=== PATIENT | male | born 1965 | race Caucasian/White ===

== ENCOUNTER 2023-07-07 18:18 | Inpatient (IN) | payer OTHER, SELFPAY ==
[2023-07-07 11:26] VITALS: BP 127/98
[2023-07-07 11:49] LABS: % Basophils 0.5 % (0-2); % Eosinophils 0.4 % (0-6); % Immature Granulocytes 0.3 % (0-0.5); % Lymphocytes 16.7 % (20.5-51.1); % Monocytes 9.7 % (1.7-9.3); % Neutrophils 72.4 % (42.2-75.2); Absolute Basophils 0.1 10^3/uL (0-0.2); Absolute Lymphocytes 1.8 10^3/uL (1.2-3.4); Absolute Monocytes 1.1 10^3/uL (0.1-0.6); Hematocrit 54.8 % (39.0-52.0); Hemoglobin 19.5 g/dL (13.0-18.0); Mean Corp Hgb Conc. 35.6 g/dL (33.0-37.0); Mean Corpuscular Hgb 31.8 pg (27.0-31.0); Mean Corpuscular Volume 89.3 fL (80.0-94.0); Mean Platelet Volume 10.6 fL (7.4-10.4); Nucleated Red Blood Cells % 0 % (-); Platelet Count 295 10^3/uL (130-400); Red Blood Cell Count 6.14 10^6/uL (4.70-6.10); Red Cell Dist. Width 11.7 % (11.5-14.5); White Blood Cell Count 11.1 10^3/uL (4.8-10.8)
[2023-07-07 12:05] LABS: ALT (SGPT) 23 U/L (0-50); AST (SGOT) 27 U/L (17-59); Alkaline Phosphatase 84 U/L (38-126); Blood Urea Nitrogen 25 mg/dl (9-20); Calcium 10.6 mg/dl (8.4-10.2); Carbon Dioxide 22 mmol/L (22-30); Chloride 97 mmol/L (98-107); Glucose 137 mg/dl (70-99); Potassium 4.5 mmol/L (3.5-5.1); Sodium 136 mmol/L (135-145); Total Bilirubin 5.1 mg/dl (0.2-1.3); Total Protein 7.9 g/dl (6.3-8.2); eGFR > 60.00
[2023-07-07 12:42] LABS: Lipase 280 U/L (23-300)
--- NOTE | 2023-07-07 13:19 | ED.GENMED ---
History of Present Illness
General
Chief Complaint: Abdominal Symptoms
Source: patient
Exam Limitations: none
Time Seen by Provider: 07/07/23 12:39
Nursing documentation reviewed up to this point in time: agreed with
Travel History
Have you had any contact with someone who has COVID-19?: No
Do you have any symptoms of coronavirus? Fever > 100 degrees, chills, cough, shortness of breath, sore throat, loss of taste or smell, muscle aches, or headache?: No
History of Present Illness
History of Present Illness:
57-year-old male
Presents for 3 days of nausea and vomiting anything he tries to eat or drink. Patient says he has not seen a doctor in years. Remotely about 25 years ago he was told he could have had Blake Bears disease but he is not really sure what his total
bilirubin was at that time. He says he really gets very anxious about being in the hospital and does not take any chronic medications, does not go for routine screening etc. Over the last several years he has had a lot of chronic hiccups and
burping. He has never seen a GI doctor. Over the last 3 weeks he thinks he has been losing weight, he is not exactly sure how many pounds but he knows he has been wearing clothes that feel bigger on him. And then in the last 3 days he started
having vomiting with even sips of water. He has no pain anywhere in his chest or abdomen. He is having normal bowel movements and had 1 last night. It was not black. He denies drug or alcohol abuse, no smoking history
Past History
Past History
ED Past Medical History: None
ED Past Surgical History: None
Social History
Tobacco: Non-smoker
Alcohol: None
Drug: None
Personal:
Living: with family
Review of Systems
Review of Systems
Allergies reviewed?: Yes
All Other Systems: Not applicable
Phy Exam
Physical Exam
Physical Exam:
GENERAL: Alert , i thin, tearful, anxious
EYE: pupils equal and reactive
NECK: Supple
ENT: o/p clr, mucous membranes mildly dry
CARDIAC: Tachycardic no murmur
LUNGS: Clear breath sounds bilaterally, no acute respiratory distress, no wheezes/rales/rhonchi frequent hiccups
ABDOMEN: Soft, flat nondistended without focal tenderness, no r/g, no cvat, normal bowel sounds
NEUROLOGICAL: Alert and oriented, no focal neuro deficits
SKIN: Warm and dry, jaundice.
MUSCULOSKELETAL: No edema, well perfused. neg philip's sign
PSYCH: Anxious
Course
Orders/Labs/Results
Orders:
Orders
07/07/23 11:34
Complete Blood Count/With Diff Urgent
Comprehensive Metabolic Panel Urgent
Lipase Urgent
07/07/23 13:15
CT Chest/abd/pel W Iv Cont Urgent
Comment:
Reason For Exam: weight loss, n/v anythinng he eats/drinks, e
07/07/23 13:16
Electrocardiogram (*1) Urgent
Reason for Study: Abdominal Pain
EKG- Treatment ONCE
0.9% Sodium Chloride 1000 ml [Nss] 1,000 ml IV BOLUS
Iohexol [Omnipaque] See Protocol PO NOW STA
Ondansetron Injectable [Zofran] 4 mg IV NOW STA
Pantoprazole [Protonix IV] 40 mg IV NOW STA
Abnormal Lab Results
07/07/23
11:34
WBC 11.1 H 10^3/uL
(4.8-10.8)
RBC 6.14 H 10^6/uL
(4.70-6.10)
Hgb 19.5 H g/dL
(13.0-18.0)
Hct 54.8 H %
(39.0-52.0)
MCH 31.8 H pg
(27.0-31.0)
MPV 10.6 H fL
(7.4-10.4)
Absolute Neuts (auto) 8.0 H 10^3/uL
(1.4-6.5)
Absolute Monos (auto) 1.1 H 10^3/uL
(0.1-0.6)
Lymphocytes % 16.7 L %
(20.5-51.1)
Monocytes % 9.7 H %
(1.7-9.3)
Chloride 97 L mmol/L
(98-107)
BUN 25 H mg/dl
(9-20)
Glucose 137 H mg/dl
(70-99)
Calcium 10.6 H mg/dl
(8.4-10.2)
Total Bilirubin 5.1 H mg/dl
(0.2-1.3)
07/07/23 11:34
07/07/23 11:34
Vital Signs
Initial and Last Documented VS:
Initial Vital Signs
Temp Pulse Resp BP Pulse Ox
98.4 F 116 16 127/98 98
07/07/23 11:26 07/07/23 11:26 07/07/23 11:26 07/07/23 11:26 07/07/23 11:26
Last Documented Vital Signs
Temp Pulse Resp BP Pulse Ox
98.4 F 98 18 109/87 96
07/07/23 11:26 07/07/23 16:38 07/07/23 16:38 07/07/23 16:38 07/07/23 16:38
MDM/Problems Addressed
Differential Diagnosis Includes:
Esophageal stricture, malignancy, achalasia, pancreatic mass, bowel obstruction
MDM/Problems Addressed:
57 y/o M noncompliant with routine healthcare;
Pretty anxious about coming to the hospital
unable to eat x 3 days, regurgitates; chronic hiccups for years; weight loss over the past 3 mo; CT shows esophageal dilation with a lot of debris - could be achalasia vs malignancy; no other signs of malignancy on ct;
Patient is unable to go home until he has an endoscopy to resolve the esophageal obstruction/dilation
dr. youssef from [facility]; will see him tomorrow
*Critical Care Note
Total Time (30-74mins, 75-104mins- exclusive of procedures): Not Applicable
ED Attending Note
-
Portions of this chart may have been created with voice recognition software.� Occasional wrong word or��sound alike� substitutions may have occurred due to the inherent limitations of voice recognition software.
Discharge Plan
Departure
Patient Disposition: Admit
Date of Disposition: 07/07/23
Time of Disposition: 17:31
Admit to: Med/Surg
Presentation/result/management discussed w/ accepting MD/: Hospitalist
Condition: Fair
Covid-19: Not Applicable
Discharge Problem:
Obstruction of esophagus
Referrals:
Bubba Crawford MD [Family Provider] -
Interventions
Interventions:
*Risk Screen - Suicide Last Done: 07/07/23 11:26
*General Assessment Last Done: 07/07/23 11:26
*Neglect/Abuse Screening Last Done: 07/07/23 13:32
*ED COVID-19 Vaccine History Last Done: 07/07/23 11:26
XF-Nmtqhr-Jbkiucnyel Assessment Last Done: 07/07/23 13:47
Discharge Date and Time
Print Language: [place]
[2023-07-07 13:31] VITALS: BMI 17.4
[2023-07-07] MEDS: ZOFRAN 4 MG IV ×2 (13:35→20:53)
[2023-07-07] MEDS: NSS 1000 IV ×2 (13:39→20:41)
[2023-07-07] MEDS: OMNIPAQUE 50 ML PO (13:39)
[2023-07-07] MEDS: PROTONIX IV 40 MG IV ×2 (13:40→20:41)
[2023-07-07 13:47] VITALS: BP 144/86
[2023-07-07 16:38] VITALS: BP 109/87
--- NOTE | 2023-07-07 17:58 | HPS.HSE ---
Family Physician
-
Family Physician: Bubba Crawford
Chief Complaint
-
inability to tolerate orally
History of Present Illness
57-year-old male with past medical history of possible Gilbert's disease presenting with worsening inability to tolerate solids or liquids. Few weeks ago he started throwing up whenever he was eating or drinking anything and this got worse over the
past 3 days. Denies any pain with swallowing. Denies any coffee-ground emesis or blood in the vomit. He has lost 5 to 10 pounds in the past several weeks. He denies any chest or abdominal pain. Denies any diarrhea or constipation has been
having regular bowel movements. Denies any blood in the stool or black stool. He has been burping for several years and saw his family care physician years ago who prescribed Pepcid without much improvement. He was diagnosed with Gilbert's
disease 25 years ago on routine lab work showing elevated bilirubin. He had a colonoscopy several years ago for diarrhea which was unremarkable. Never had EGD.
He denies any smoking, alcohol or drug use. His father had colitis of unspecified type. No family history of cancers.
Medical History
Past Medical History
Past Medical History: Reports Other (possible Gilbert's disease)
Past Surgical History: Reports None
Social History
Tobacco: Non-smoker
Alcohol: None
Drug: None
Family History
Family History: Not pertinent
Allergies / Home Medications
Allergies reflects when Allergies were last updated in [facility].
Home Medications with original date entered in [facility]
Allergy/Medication List:
Allergies
Allergy/AdvReac Type Severity Reaction Status Date / Time
No Known Allergies Allergy Unverified 07/07/23 11:29
Home Medications
No Meds [No Current Medications] 07/07/23
Review of Systems
-
History Source: Patient
A 12 point ROS was completed and negative except as noted: Yes
Constitutional: Reports No Symptoms
EENT: Reports No Symptoms
Respiratory: Reports No Symptoms
Cardiac: Reports No Symptoms
Abdomen/GI: Reports See HPI
: Reports No Symptoms
Musculoskeletal: Reports No Symptoms
Skin: Reports No Symptoms
Neurological: Reports No Symptoms
Endocrine: Reports No Symptoms
Hematologic/Lymphatic: Reports No Symptoms
Psych: Reports No Symptoms
Physical Exam
Vital Signs
Vital Signs
Temp Pulse Resp BP Pulse Ox
98.4 F 98 18 109/87 96
07/07/23 11:26 07/07/23 16:38 07/07/23 16:38 07/07/23 16:38 07/07/23 16:38
Physical Exam
General: Well Developed, Well Nourished and No Apparent Distress
HEENT: NormoCephalic, Moist mucous membranes and Atraumatic
Respiratory: Clear
Cardiac: S1/S2 and Regular Rhythm; No Murmur or Rub
GI: Soft, Non Tender, Non Distended and Normal Bowel Sounds; No Organomegaly
Rectal: Deferred by Provider
Musculoskeletal: No Clubbing, No Cyanosis and No Edema
Skin: No Rash
Neuro: Nonfocal/grossly intact
Laboratory Results
-
07/07/23 11:34
07/07/23 11:34
Laboratory Results
Total Bilirubin 5.1 mg/dl (0.2-1.3) H 07/07/23 11:34
AST 27 U/L (17-59) 07/07/23 11:34
ALT 23 U/L (0-50) 07/07/23 11:34
Alkaline Phosphatase 84 U/L (38-126) 07/07/23 11:34
Lipase 280 U/L (23-300) 07/07/23 11:34
Data Reviewed
-
Lab Data: Labs Reviewed by me
Old Records: Reviewed
Impression/Plan
-
IMPRESSION:
PLAN:
# Dysphagia likely secondary to distal esophageal malignancy/achalasia
-CT chest abdomen pelvis shows abnormal concentric mural thickening of the distal esophagus/gastroesophageal junction with diffuse abnormal esophageal dilatation large amount of ingested material within the distended esophagus above this point
-Protonix 40 twice daily
-N.p.o.
-IV fluids
-GI consulted
# History of possible Gilbert's disease
-Bilirubin of 5.1, no prior available
Full code
DVT prophylaxisis-SCDs
N.p.o.
[2023-07-07 18:30] VITALS: BP 120/90
[2023-07-07 19:48] VITALS: BP 150/99; BMI 17.6
--- NOTE | 2023-07-07 19:50 | PTCARENOTE ---
Patient received from ED via stretcher. Patient ambulated into the room. AAOx3, VSS. BP elevated. No complaints of pain. Complaints of N/V. 1 small episode of emesis, clear color. Patient given zofran see MAR. Patient made comfortable, call feliciano is
within reach.
[2023-07-07] MEDS: NSS (PRESERVATIVE FREE) 10 ML IV (20:41)
[2023-07-07 23:55] VITALS: BP 135/93
[2023-07-08] VITALS (9 sets, daily range): BP systolic 123–145; BP diastolic 81–101; BMI 17.6
[2023-07-08] MEDS: NSS 1000 IV (05:26)
[2023-07-08] MEDS: ZOFRAN 4 MG IV (05:30)
--- NOTE | 2023-07-08 06:52 | CON.GI ---
Addendum entered and electronically signed by Fracisco Kingston MD 07/08/23 11:34:
I saw and examined the patient.
The STAFF WEAPONS OFFICER or PA's note was reviewed and I agree with the note.
Comment: 57yo male with no significant PMH presents with inability to tolerate POs. Swallowing has been difficult for couple years but worsened significantly over last two weeks and unable to keep any PO down last [address] shows thickening at GE
jxn and dilated esophagus proximally with large amount of food in esophagus.
REC:
Plan for EGD under [facility] to remove food
Possible achalasia
Original Note:
Consultation
-
Date/Time Consultation Requested: 07/07/231924
Date/Time Consultation Performed: 07/08/23 0700
Requesting Provider: Benjamin Miller MD
Performing Provider: DEANGELO Del Valle, Fracisco Kingston MD
Reason for Consultation: dsyphagia
Medical History
Chief Complaint / HPI
Chief Complaint: unable to eat
History of Present Illness:
Pt is a 57yo with hx possible Gilbert's disease distant hx proctitis with short term enema treatment and colonoscopy years ago with onset dysphagia for some time. He had feeling of food sticking in lower esophagus for some of nausea/vomiting with
inability to eat with belching, hiccups and wt loss. On admission labs notable for BUN 25, glucose 137, calcium 10.6, bili 5.1, WBC 11.1, hbg 19.5, hct 54.[address] chest/abd/pelvis completed with IV contrast with concern for mural
thickening distal esophagus/GE junction with abnormal esophageal dilation and large amount of ingested material with distended esophagus. No finding for mets, non obstructive nephrolithiasis, diverticulosis.
At this time patient admits to chronic dysphagia symptoms for some time. Symptoms were worse over last 2 weeks then severe with inability to eat for last 3 days with increased hiccups and bringing up frothy secretions. Pt admits to recent 5-10
lbs. Pt admits to taking occasional pepcid but denies NSAID or any other medication use. Pt denies GERD, hematemesis, abdominal pain, chest pain, diarrhea, constipation or rectal bleeding. NO prior EGD. Distant hx colonoscopy with proctitis.
Past Medical History
Past Medical History: Psychiatric (anxiety ) and Other (possible Gilbert's, proctitis )
Social History
Tobacco: Non-Smoker
Alcohol: None
Drug: None
Personal:
Living: With Family
Employment: Employed
Family History
Family History: Other (no family hx colon CA or polyps )
Allergies / Home Medications
Allergy/AdvReac Type Severity Reaction Status Date / Time
No Known Allergies Allergy Unverified 07/07/23 11:29
�Medication �Instructions �Recorded
No Meds [No Current Medications] 07/07/23
Review of Systems
-
History Source: Patient
Constitutional: Reports Weight Loss and Other (hiccups )
EENT: Reports Other (dysphagia as per HPI)
Respiratory: Reports No Symptoms
Cardiac: Reports No Symptoms
Abdomen/GI: Reports Nausea and Vomiting (mucous)
: Reports No Symptoms
Musculoskeletal: Reports No Symptoms
Skin: Reports No Symptoms
Neurological: Reports Weakness
Endocrine: Reports No Symptoms
Hematologic/Lymphatic: Reports No Symptoms
Vital Signs
Temp Pulse Resp BP Pulse Ox
98 F 100 18 135/93 97
07/07/23 23:55 07/07/23 23:55 07/07/23 23:55 07/07/23 23:55 07/07/23 23:55
Physical Exam
Exam
General: Well Developed, Well Nourished and No Apparent Distress
HEENT: Normocephalic and Anicteric
Respiratory: Clear
Cardiac: Regular Rhythm
GI: Soft, Non Tender and Non Distended
Musculoskeletal: No Clubbing and No Cyanosis
Skin: Warm and Dry
Neuro: Awake, Alert and AO x 3
Hematologic/Lymphatic: No Lymphadenopathy
Psych: Calm
Results
WBC 11.1 10^3/uL (4.8-10.8) H 07/07/23 11:34
Hgb 19.5 g/dL (13.0-18.0) H 07/07/23 11:34
Hct 54.8 % (39.0-52.0) H 07/07/23 11:34
MCV 89.3 fL (80.0-94.0) 07/07/23 11:34
Plt Count 295 10^3/uL (130-400) 07/07/23 11:34
Absolute Neuts (auto) 8.0 10^3/uL (1.4-6.5) H 07/07/23 11:34
Sodium 136 mmol/L (135-145) 07/07/23 11:34
Potassium 4.5 mmol/L (3.5-5.1) 07/07/23 11:34
Chloride 97 mmol/L (98-107) L 07/07/23 11:34
Carbon Dioxide 22 mmol/L (22-30) 07/07/23 11:34
BUN 25 mg/dl (9-20) H 07/07/23 11:34
Creatinine 1.1 mg/dL (0.7-1.3) 07/07/23 11:34
Calcium 10.6 mg/dl (8.4-10.2) H 07/07/23 11:34
Total Bilirubin 5.1 mg/dl (0.2-1.3) H 07/07/23 11:34
AST 27 U/L (17-59) 07/07/23 11:34
ALT 23 U/L (0-50) 07/07/23 11:34
Alkaline Phosphatase 84 U/L (38-126) 07/07/23 11:34
Lipase 280 U/L (23-300) 07/07/23 11:34
Diagnostic Image Results:
4/15/24 CT Chest/abd/pel W Iv Cont
1. Abnormal concentric mural thickening of the distal esophagus/gastroesophageal junction. Above this level, diffuse abnormal esophageal dilation with large amount of ingested material within the distended esophagus. Differential considerations of
distal esophageal malignancy and achalasia, recommend further evaluation with endoscopy.
2. The distended esophagus exerts significant mass effect against right pulmonary artery, left atrium, and right atrium as above.
3. No findings suspicious for metastatic disease are identified.
4. Nonobstructive right nephrolithiasis.
5. Diverticulosis without diverticulitis.
Prior GI Procedures:
EGD: none
Colonoscopy: years ago with proctitis
Assessment / Plan
-
Pt is a 57yo with hx possible Gilbert's disease distant hx proctitis with short term enema treatment and colonoscopy years ago with onset dysphagia for some time. He had feeling of food sticking in lower esophagus for some of nausea/vomiting with
inability to eat with belching, hiccups and wt loss. On admission labs notable for BUN 25, glucose 137, calcium 10.6, bili 5.1, WBC 11.1, hbg 19.5, hct 54.[address] chest/abd/pelvis completed with IV contrast with concern for mural
thickening distal esophagus/GE junction with abnormal esophageal dilation and large amount of ingested material with distended esophagus. No finding for mets, non obstructive nephrolithiasis, diverticulosis. no prior EGD or recent medical care
-nausea/vomiting
-abnormal CT with concern for mural thickening distal esophagus with abnormal dilation and large amount ingested material
-weight loss
-elevated hbg on admission
-elevated bili with concern for possible underlying Gilbert's disease
-distant hx procitit
PLAN:
etiology of symptoms with concern for large food impaction with underlying mass vs achalasia vs other
plan for EGD today for large food impaction
reviewed with patient may be prolonged procedure with volume of food noted on imaging
reviewed risk of bleeding, infection, perforation, aspiration etc with scope, all questions answered
after impaction clears will need evaluation for underlying etiology
cont NPO
PPI BID
nursing staff updated staff
reviewed with Dr. Rousseau
-
-
Thank you for consultation and allowing me to participate in the patient's care. Please call the avionics technician GI physician during the after hours with any questions or concerns.
[2023-07-08 07:56] LABS: % Basophils 0.6 % (0-2); % Eosinophils 0.4 % (0-6); % Immature Granulocytes 0.5 % (0-0.5); % Lymphocytes 15.3 % (20.5-51.1); % Monocytes 10.2 % (1.7-9.3); Absolute Basophils 0.1 10^3/uL (0-0.2); Absolute Lymphocytes 1.2 10^3/uL (1.2-3.4); Absolute Monocytes 0.8 10^3/uL (0.1-0.6); Absolute Neutrophils 5.9 10^3/uL (1.4-6.5); Hematocrit 46.5 % (39.0-52.0); Mean Corp Hgb Conc. 36.6 g/dL (33.0-37.0); Mean Corpuscular Hgb 32.2 pg (27.0-31.0); Mean Corpuscular Volume 88.1 fL (80.0-94.0); Mean Platelet Volume 10.2 fL (7.4-10.4); Nucleated Red Blood Cells % 0 % (-); Platelet Count 259 10^3/uL (130-400); Red Blood Cell Count 5.28 10^6/uL (4.70-6.10); Red Cell Dist. Width 11.9 % (11.5-14.5); White Blood Cell Count 8.1 10^3/uL (4.8-10.8)
[2023-07-08 08:21] LABS: ALT (SGPT) 16 U/L (0-50); AST (SGOT) 20 U/L (17-59); Alkaline Phosphatase 71 U/L (38-126); Blood Urea Nitrogen 20 mg/dl (9-20); Calcium 9.2 mg/dl (8.4-10.2); Carbon Dioxide 17 mmol/L (22-30); Chloride 108 mmol/L (98-107); Direct Bilirubin 0.3 mg/dl (0.0-0.4); Estimated Creatinine Clearance 74 ml/min; Glucose 95 mg/dl (70-99); Potassium 4.3 mmol/L (3.5-5.1); Sodium 136 mmol/L (135-145); Total Bilirubin 5.4 mg/dl (0.2-1.3); Total Protein 6.5 g/dl (6.3-8.2); eGFR > 60.00
[2023-07-08 08:31] LABS: INR 1.21; PT 15.1 Sec (11.4-14.6)
[2023-07-08] MEDS: NSS (PRESERVATIVE FREE) 10 ML IV ×2 (09:39→20:09)
[2023-07-08] MEDS: PROTONIX IV 40 MG IV ×2 (09:39→20:09)
--- NOTE | 2023-07-08 09:54 | W.PN.HOSP.TC ---
Today's Communication/Plan
-
For EGD today possible need for higher level of care in ICU based on findings and need for further intervention
Continue PPI IV
Change IV saline to half-normal saline with bicarb
Assessment / Plan
Assessment / Plan
57-year-old male with past medical history of possible Gilbert's disease presenting with worsening inability to tolerate solids or liquids. Few weeks ago he started throwing up whenever he was eating or drinking anything and this got worse over the
past 3 days. Denies any pain with swallowing. Denies any coffee-ground emesis or blood in the vomit. He has lost 5 to 10 pounds in the past several weeks. He denies any chest or abdominal pain. Denies any diarrhea or constipation has been
having regular bowel movements. Denies any blood in the stool or black stool. He has been burping for several years and saw his family care physician years ago who prescribed Pepcid without much improvement. He was diagnosed with Gilbert's
disease 25 years ago on routine lab work showing elevated bilirubin. He had a colonoscopy several years ago for diarrhea which was unremarkable. Never had EGD.
He denies any smoking, alcohol or drug use. His father had colitis of unspecified type. No family history of cancers.
CT of the chest/pelvis with IV contrast
1. Abnormal concentric mural thickening of the distal esophagus/gastroesophageal junction. Above this level, diffuse abnormal esophageal dilation with large amount of ingested material within the distended esophagus. Differential considerations of
distal esophageal malignancy and achalasia, recommend further evaluation with endoscopy.
2. The distended esophagus exerts significant mass effect against right pulmonary artery, left atrium, and right atrium as above.
3. No findings suspicious for metastatic disease are identified.
4. Nonobstructive right nephrolithiasis.
5. Diverticulosis without diverticulitis.
# Dysphagia likely secondary to distal esophageal malignancy/achalasia
-CT chest abdomen pelvis shows abnormal concentric mural thickening of the distal esophagus/gastroesophageal junction with diffuse abnormal esophageal dilatation large amount of ingested material within the distended esophagus above this point
-Protonix 40 twice daily
-N.p.o.
-IV fluids
-GI consulted/as discussed with the patient and also patient's spouse been informed that the patient in process of EGD and due to the complexity and volume of food involved may require eventual intubation for completion of intervention and
disimpaction of food/risk of perforation also explain/
# History of possible Gilbert's disease
-Bilirubin of 5.1, no prior available
Full code
DVT prophylaxisis-SCDs
N.p.o.
Anticipated Discharge: Within 24 hours
Subjective/Interval History
-
Date of Service: July 08, 2023
Frequent burping and hiccups. Relates inability to take anything down orally for the last 2 to 3 days prior to that been gradually worsening with various liquids and solids. Has had weight loss for the last 2 weeks.
Objective Data
-
Labs:
Laboratory Results
07/08/23 07/08/23
07:34 08:01
WBC 8.1
Hgb 17.0
Hct 46.5
Plt Count 259
PT 15.1 H
INR 1.21
Sodium 136
Potassium 4.3
Chloride 108 H
Carbon Dioxide 17 L
BUN 20
Creatinine 0.9
Glucose 95
Calcium 9.2
Total Bilirubin 5.4 H
AST 20
ALT 16
Alkaline Phosphatase 71
Vital Signs:
Vital Signs
Temp Pulse Resp BP Pulse Ox
98.2 F 76 16 135/85 99
07/08/23 07:45 07/08/23 07:45 07/08/23 07:45 07/08/23 07:45 07/08/23 07:45
I&O
07/07/23 07/08/23 07/09/23
06:59 06:59 06:59
Intake Total 1680 / 1680
Balance 1680 / 1680
Review of Systems
-
History Source: Patient
Constitutional: Reports Weight Loss
Abdomen/GI: Reports Vomiting
Physical Exam
-
General: Well Developed
HEENT: Normocephalic and Other; Negative Anicteric (Icteric)
Respiratory: Clear to Auscultation
Cardiac: Regular Rhythm
GI: Soft, Nontender and Nondistended
Neuro: Awake, Alert and Oriented
Psych: Calm
Data Reviewed
-
Total Time Spent with Patient (in minutes): 56
Labs: Labs Reviewed by me (Bicarb 17/total bilirubin of 5.4)
[2023-07-08] MEDS: SODIUM BICARBONATE 1075 MEQ IV ×2 (10:42→23:31)
--- NOTE | 2023-07-08 11:49 | CM ---
Patient seen bedside, initial assessment completed. Patient lives with his and daughter in multiple story home, denies DME, VN, or SNF. Patient denies food insecurities at home. Patient confirms PCP Bubba Crawford, pharmacy [facility], confirms
prescription coverage. CM will continue to follow for discharge planning needs.
Plan; home no needs likely.
--- NOTE | 2023-07-08 12:52 | W.PN.UPDATE ---
Update Note
Progress Note Update
EGD done
Large amount semi liquid food in esophagus. Removed with Beck net and suction with Biovac
Moderate esophagitis - bx'd
Gastric fundic polyps- bx'd
REC:
Clear liquids
Await path- r/o EoE
If negative path, set up OP esophageal manometry
--- NOTE | 2023-07-09 05:14 | DOWNTIME ---
There was a [employer] Service Merchandiser Downtime on 07/09/2023 from 0100 to 07/09/2023 at 0439. Downtime documentation of patient's care, including medication administrations, has been reconciled in the electronic record per guidelines. Refer to the
patient's paper chart under the miscellaneous tab to see printed paper medication records and downtime forms.
[2023-07-09 07:30] VITALS: BP 156/92
[2023-07-09] MEDS: NSS (PRESERVATIVE FREE) 10 ML IV ×2 (07:35→19:36)
[2023-07-09] MEDS: PROTONIX IV 40 MG IV ×2 (07:35→19:36)
--- NOTE | 2023-07-09 08:52 | W.PN.HOSP.TC ---
Today's Communication/Plan
-
Will defer further dietary advancement to GI
Presume if can be advanced and follow-up biopsy results as outpatient and possible outpatient esophageal manometry
Continues on IV PPI for now
Assessment / Plan
Assessment / Plan
57-year-old male with past medical history of possible Gilbert's disease presenting with worsening inability to tolerate solids or liquids. Few weeks ago he started throwing up whenever he was eating or drinking anything and this got worse over the
past 3 days. Denies any pain with swallowing. Denies any coffee-ground emesis or blood in the vomit. He has lost 5 to 10 pounds in the past several weeks. He denies any chest or abdominal pain. Denies any diarrhea or constipation has been
having regular bowel movements. Denies any blood in the stool or black stool. He has been burping for several years and saw his family care physician years ago who prescribed Pepcid without much improvement. He was diagnosed with Gilbert's
disease 25 years ago on routine lab work showing elevated bilirubin. He had a colonoscopy several years ago for diarrhea which was unremarkable. Never had EGD.
He denies any smoking, alcohol or drug use. His father had colitis of unspecified type. No family history of cancers.
CT of the chest/pelvis with IV contrast
1. Abnormal concentric mural thickening of the distal esophagus/gastroesophageal junction. Above this level, diffuse abnormal esophageal dilation with large amount of ingested material within the distended esophagus. Differential considerations of
distal esophageal malignancy and achalasia, recommend further evaluation with endoscopy.
2. The distended esophagus exerts significant mass effect against right pulmonary artery, left atrium, and right atrium as above.
3. No findings suspicious for metastatic disease are identified.
4. Nonobstructive right nephrolithiasis.
5. Diverticulosis without diverticulitis.
# Dysphagia likely secondary to distal esophageal malignancy/achalasia
-CT chest abdomen pelvis shows abnormal concentric mural thickening of the distal esophagus/gastroesophageal junction with diffuse abnormal esophageal dilatation large amount of ingested material within the distended esophagus above this point
-Protonix 40 twice daily
-Clear liquids and awaiting GI input for advancement
-IV fluid can be discontinued
-GI consulted/as discussed with the patient and also patient's spouse been informed that the patient in process of EGD and due to the complexity and volume of food involved may require eventual intubation for completion of intervention and
disimpaction of food/risk of perforation also explain/underwent EGD finding large amount of semiliquid food in the esophagus removed finding moderate esophagitis that was biopsied along with gastric fundic polyps that were biopsied/rule out
eosinophilic esophagitis per GI if negative for pathology set up outpatient esophageal manometry
# History of possible Gilbert's disease
-Bilirubin of 5.1, no prior available
Full code
DVT prophylaxisis-SCDs
N.p.o.
Anticipated Discharge: Within 24 hours
Subjective/Interval History
-
Date of Service: July 09, 2023
Seems to have tolerated clear liquids thus far without regurgitation nausea or pain.
Objective Data
-
Labs:
Laboratory Results
07/09/23
08:15
Sodium Pending
Potassium Pending
Chloride Pending
Carbon Dioxide Pending
BUN Pending
Creatinine Pending
Glucose Pending
Calcium Pending
Vital Signs:
Vital Signs
Temp Pulse Resp BP Pulse Ox
98.7 F 72 16 156/92 100
07/09/23 07:30 07/09/23 07:30 07/09/23 07:30 07/09/23 07:30 07/09/23 07:30
I&O
07/08/23 07/09/23 07/10/23
06:59 06:59 06:59
Intake Total 1680 / 1680 2380 / 2380
Balance 1680 / 1680 2380 / 2380
Review of Systems
-
All other systems: Not reviewed unless documented
Physical Exam
-
General: Well Developed
HEENT: Normocephalic
Respiratory: Clear to Auscultation
Cardiac: Regular Rhythm
GI: Soft and Nontender
Neuro: Awake and Alert
Psych: Calm
Data Reviewed
-
Total Time Spent with Patient (in minutes): 45
CT Scan: Report Reviewed by me (Report reviewed and performed prior to EGD/showing marked dilatation of the esophagus from food impaction)
Labs: Labs Reviewed by me (Today's labs pending)
[2023-07-09] MEDS: SODIUM BICARBONATE IV (09:39)
[2023-07-09 09:51] LABS: Blood Urea Nitrogen 16 mg/dl (9-20); Calcium 8.8 mg/dl (8.4-10.2); Carbon Dioxide 25 mmol/L (22-30); Chloride 100 mmol/L (98-107); Estimated Creatinine Clearance 83 ml/min; Glucose 104 mg/dl (70-99); Potassium 3.9 mmol/L (3.5-5.1); Sodium 132 mmol/L (135-145); eGFR > 60.00
--- NOTE | 2023-07-09 09:59 | W.PN.GI.CBS2 ---
Addendum entered and electronically signed by Fracisco Bansal MD 07/09/23 12:18:
I saw and examined the patient.
The [employer]PER or PA's note was reviewed and I agree with the note.
Comment: Tolerated clears. Having hiccups. Denies abd pain or vomiting
ABD soft NTND
REC:
OK to advance to minced and moist diet
If tolerates, OK for d/c
Await path. If negative for EoE, will set up manometry next for likely achalasia diagnosis
Cont BID PPI
Addendum entered and electronically signed by DEANGELO Valenzuela 07/09/23 11:19:
message sent to arrange OP follow up -- office will call patient to arrange
Original Note:
Today's Communication / Plan
-
s/p EGD with removal of food impaction
biopsy pending
possible underlying dysmotility vs other consider OP manometry
clear diet- some hiccups this am with clears monitor and plan for soft diet later today-- if tolerating consider discharge later today
will arrange OP followup
cont PPI BID
reviewed with Dr. Rousseau
Assessment / Plan
-
Pt is a 57yo with hx possible Gilbert's disease distant hx proctitis with short term enema treatment and colonoscopy years ago with onset dysphagia for some time. He had feeling of food sticking in lower esophagus for some of nausea/vomiting with
inability to eat with belching, hiccups and wt loss. CT chest/abd/pelvis completed with IV contrast with concern for mural thickening distal esophagus/GE junction with abnormal esophageal dilation and large amount of ingested material with
distended esophagus. No finding for mets, non obstructive nephrolithiasis, diverticulosis. no prior EGD or recent medical care
07/07 EGD [facility] - Food in the esophagus. Removal was successful.
- Moderately severe esophagitis with no bleeding.
Biopsied.
- Multiple gastric polyps. Biopsied.
- Normal examined duodenum.
bx pending
-large food impaction with removal 07/07
-abnormal CT with concern for mural thickening distal esophagus with abnormal dilation and large amount ingested material
-weight loss
-hiccups
-elevated hbg on admission
-elevated bili with concern for possible underlying Gilbert's disease
-distant hx procititis
PLAN:
s/p EGD with removal of food impaction
biopsy pending
possible underlying dysmotility vs other consider OP manometry
clear diet- some hiccups this am with clears monitor and plan for soft diet later today-- if tolerating consider discharge
will arrange OP followup
cont PPI BID
reviewed with Dr. Rousseau
Subjective
Subjective
Date of Service: July 09, 2023
Objective
Data Reviewed
Laboratory Data:
Laboratory Results
07/08/23 07:34
07/09/23 08:15
Laboratory Results
PT 15.1 Sec (11.4-14.6) H 07/08/23 08:01
INR 1.21 07/08/23 08:01
Total Bilirubin 5.4 mg/dl (0.2-1.3) H 07/08/23 07:34
AST 20 U/L (17-59) 07/08/23 07:34
ALT 16 U/L (0-50) 07/08/23 07:34
Alkaline Phosphatase 71 U/L (38-126) 07/08/23 07:34
Lipase 280 U/L (23-300) 07/07/23 11:34
Vital Signs and I&O:
Vital Signs
Temp Pulse Resp BP Pulse Ox
98.7 F 72 16 156/92 100
07/09/23 07:30 07/09/23 07:30 07/09/23 07:30 07/09/23 07:30 07/09/23 07:30
I&O
07/08/23 07/09/23 07/10/23
06:59 06:59 06:59
Intake Total 0 / 1680 2380 / 2380
Balance 1680 / 1680 2380 / 2380
Physical Exam
Physical Exam
HEENT: Anicteric and Moist mucous membranes
Cardiology: Normal Sinus Rhythm
Pulmonary: Clear
GI: Soft, Non Distended and Non Tender
Extremities: No Edema
Neuro: Non Focal
--- NOTE | 2023-07-09 11:44 | W.DS.TRANS ---
DC Summary - Wheelchair [employer]
-
Discharge Instructions:
Discharge Diagnosis/Procedures Food impaction
Possible motility disorder of esophagus
Esophagitis
Diet Chop all food
Additional Diets Mechanical soft
Activity As tolerated
Driving Restrictions As prior to admission
Instructions:
Stand-Alone Forms:
Changes to Home Medications: Yes
Discharge Medications:
DC Medications w/original date entered in [employer]
pantoprazole 40 mg tablet,delayed release (Protonix) 40 mg PO BID Gastrointestinal issue #60 tabs 07/09/23
Home Medication Changes
pantoprazole 40 mg tablet,delayed release (Protonix) 40 mg PO BID Gastrointestinal issue #60 tabs 07/09/23
Pending Results: No
--- NOTE | 2023-07-09 12:11 | CM ---
Patient seen bedside. Per Gastroenterology note, possible discharge today if tolerating soft diet. CM will continue to follow for discharge planning needs.
Plan; home no needs.
[2023-07-09 12:15] VITALS: BP 118/92
--- NOTE | 2023-07-09 13:30 | W.DCSUMMARY ---
Addendum entered and electronically signed by Collin Rousseau MD 07/09/23 15:51:
On attempt at soft diet redeveloped nausea and emesis and was preceded by retrn of hiccups . Will cancel discharge. Will place back on IV fluids .GI aware
Original Note:
Discharge Summary
Discharge Data
Date of Admission: 07/07/23
Date of Discharge: 07/09/23
Total time spent discharging patient (in min): 56
-
Pending Results: No
Hospital Course
57-year-old male patient with prior history of Chandra's disease and a distant history of proctitis who is presented with ongoing dysphagia describing as food sticking in the lower esophagus with some nausea and vomiting had initially thought it
would pass but became more persistent to the point now unable to keep anything down with belching hiccups and weight loss. A CT of the chest abdomen pelvis at time of presentation with IV contrast was concerning for a large food food impaction in
the esophagus with mural thickening the distal esophagus and GE junction with abnormal esophageal dilation suspect in large amount of ingested material noting in the distended esophagus. Patient was kept n.p.o. admitted
and gastroenterology service was consulted
Patient underwent an EGD by Dr. Kingston findings significant amount of food in the esophagus mostly liquefied with removal being successful with areas of biopsies to the gastric polyps that were found in multiple locations and also moderate severe
esophagitis being found that was biopsied there is a normal duodenum noted with also biopsy pending there.
He was returned to his room and observed overnight placed on a clear liquid diet which has been tolerated and he is now graduated to a mechanical soft diet which we will plan diet on his discharge and to further follow-up with GI to address possible
need for manometry only after obtaining biopsy results that should include assessment for eosinophilic esophagitis. There seems to be no mass effect noted at the time of EGD. He will be continued on a twice daily PPI as long as he tolerates his
mechanical soft diet the rest of the day he can be discharged later today. GI service has given him instructions for follow-up PPI was called into his local pharmacy.
Discharge Plan
-
Patient Disposition: Home (Routine Discharge)
Discharge Diagnosis/Procedures: Food impaction
Possible motility disorder of esophagus
Esophagitis
Diet: Chop all food
Additional Diets: Mechanical soft
Activity: As tolerated
Driving Restrictions: As prior to admission
Referrals:
Bubba Crawford MD [Family Provider] -
Fracisco Kingston MD [Active] - (call office to arrange 3-4 week follow up)
Prescriptions:
New
pantoprazole [Protonix] 40 mg tablet,delayed release (DR/EC)
40 mg PO BID Qty: 60 0RF
Discharge Orders:
Discharge Patient (As Directed); Ordered 07/09/23
Ordered By: Collin Rousseau
Discharge Date and Time
Print Language: PERUVIAN
[2023-07-09] MEDS: ZOFRAN 4 MG IV ×2 (14:51→22:15)
[2023-07-09 15:12] VITALS: BP 141/96
[2023-07-09] MEDS: NSS 1000 IV (16:18)
[2023-07-09 23:10] VITALS: BP 148/96
[2023-07-10] MEDS: NSS 1000 IV ×2 (04:30→16:07)
[2023-07-10 07:55] VITALS: BP 130/97
[2023-07-10] MEDS: NSS (PRESERVATIVE FREE) 10 ML IV ×2 (08:11→19:29)
[2023-07-10] MEDS: PROTONIX IV 40 MG IV ×2 (08:11→19:29)
--- NOTE | 2023-07-10 09:20 | W.PN.HOSP.TC ---
Today's Communication/Plan
-
Attempted advancing diet unfortunately was unsuccessful due to return of nausea and vomiting and hiccups and burping./
Will continue IV PPI and IV fluids have been reinitiated awaiting GI input
Assessment / Plan
Assessment / Plan
57-year-old male with past medical history of possible Gilbert's disease presenting with worsening inability to tolerate solids or liquids. Few weeks ago he started throwing up whenever he was eating or drinking anything and this got worse over the
past 3 days. Denies any pain with swallowing. Denies any coffee-ground emesis or blood in the vomit. He has lost 5 to 10 pounds in the past several weeks. He denies any chest or abdominal pain. Denies any diarrhea or constipation has been
having regular bowel movements. Denies any blood in the stool or black stool. He has been burping for several years and saw his family care physician years ago who prescribed Pepcid without much improvement. He was diagnosed with Gilbert's
disease 25 years ago on routine lab work showing elevated bilirubin. He had a colonoscopy several years ago for diarrhea which was unremarkable. Never had EGD.
He denies any smoking, alcohol or drug use. His father had colitis of unspecified type. No family history of cancers.
CT of the chest/pelvis with IV contrast
1. Abnormal concentric mural thickening of the distal esophagus/gastroesophageal junction. Above this level, diffuse abnormal esophageal dilation with large amount of ingested material within the distended esophagus. Differential considerations of
distal esophageal malignancy and achalasia, recommend further evaluation with endoscopy.
2. The distended esophagus exerts significant mass effect against right pulmonary artery, left atrium, and right atrium as above.
3. No findings suspicious for metastatic disease are identified.
4. Nonobstructive right nephrolithiasis.
5. Diverticulosis without diverticulitis.
# Dysphagia likely secondary to distal esophageal malignancy/achalasia
-CT chest abdomen pelvis shows abnormal concentric mural thickening of the distal esophagus/gastroesophageal junction with diffuse abnormal esophageal dilatation large amount of ingested material within the distended esophagus above this point
-Protonix 40 twice daily
-Clear liquids and awaiting GI input for advancement
-IV fluid can be discontinued
-GI consulted/as discussed with the patient and also patient's spouse been informed that the patient in process of EGD and due to the complexity and volume of food involved may require eventual intubation for completion of intervention and
disimpaction of food/risk of perforation also explain/underwent
EGD finding large amount of semiliquid food in the esophagus removed finding moderate esophagitis that was biopsied along with gastric fundic polyps that were biopsied/rule out eosinophilic esophagitis per GI if negative for pathology set up
outpatient esophageal manometry
-Attempted advancing diet unfortunately was unsuccessful due to return of nausea and vomiting and hiccups and burping./Will continue IV PPI and IV fluids have been reinitiated awaiting GI input
# History of possible Gilbert's disease
-Bilirubin of 5.1, no prior available
Full code
DVT prophylaxisis-SCDs
N.p.o.
Anticipated Discharge: Within 24 hours
Subjective/Interval History
-
Date of Service: July 10, 2023
Had to have his discharge postponed yesterday due to recurrence of his nausea vomiting and hiccups are remained this morning and also had nausea and emesis overnight. Placed back on IV fluids.
Objective Data
-
Vital Signs:
Vital Signs
Temp Pulse Resp BP Pulse Ox
98.7 F 72 19 148/96 98
07/09/23 23:10 07/09/23 23:10 07/09/23 23:10 07/09/23 23:10 07/09/23 23:10
I&O
07/09/23 07/10/23 07/11/23
06:59 06:59 06:59
Intake Total 2380 / 2380 2820 / 2820
Balance 2380 / 2380 2820 / 2820
Review of Systems
-
History Source: Patient
All other systems: Reviewed and negative
Constitutional: Reports No Symptoms
EENT: Reports No Symptoms Reported
Respiratory: Reports No Symptoms
Cardiac: Reports No Symptoms
Abdomen/GI: Reports Nausea and Vomiting
Genitourinary: Reports No Symptoms
Musculoskeletal: Reports No Symptoms
Physical Exam
-
General: Well Developed
Respiratory: Clear to Auscultation
Cardiac: Regular Rhythm and S1/S2
GI: Soft, Nontender and Nondistended
Data Reviewed
-
Total Time Spent with Patient (in minutes): 34
Labs: Labs Reviewed by me
--- NOTE | 2023-07-10 11:12 | W.PN.GI.CBS2 ---
Today's Communication / Plan
-
Keep NPO
Await esophagram results
Possible EGD with botox injection into [facility] tomorrow for achalasia rx
Assessment / Plan
-
Pt is a 57yo with hx possible Gilbert's disease distant hx proctitis with short term enema treatment and colonoscopy years ago with onset dysphagia for some time. He had feeling of food sticking in lower esophagus for some of nausea/vomiting with
inability to eat with belching, hiccups and wt loss. CT chest/abd/pelvis completed with IV contrast with concern for mural thickening distal esophagus/GE junction with abnormal esophageal dilation and large amount of ingested material with
distended esophagus. No finding for mets, non obstructive nephrolithiasis, diverticulosis. no prior EGD or recent medical care
07/07 EGD [facility] - Food in the esophagus. Removal was successful.
- Moderately severe esophagitis with no bleeding.
Biopsied.
- Multiple gastric polyps. Biopsied.
- Normal examined duodenum.
bx pending
Impression:
-large food impaction with removal 07/07
-Dilated esophagus, suspect achalasia
-abnormal CT with concern for mural thickening distal esophagus with abnormal dilation and large amount ingested material
-weight loss
-hiccups
-elevated hbg on admission
-elevated bili with concern for possible underlying Gilbert's disease
-distant hx procititis
Subjective
Subjective
Date of Service: July 10, 2023
Did not tolerate minced and moist diet yesterday. Vomited up food following meal.
Objective
Data Reviewed
Laboratory Data:
Laboratory Results
07/08/23 07:34
07/09/23 08:15
Laboratory Results
PT 15.1 Sec (11.4-14.6) H 07/08/23 08:01
INR 1.21 07/08/23 08:01
Total Bilirubin 5.4 mg/dl (0.2-1.3) H 07/08/23 07:34
AST 20 U/L (17-59) 07/08/23 07:34
ALT 16 U/L (0-50) 07/08/23 07:34
Alkaline Phosphatase 71 U/L (38-126) 07/08/23 07:34
Lipase 280 U/L (23-300) 07/07/23 11:34
Vital Signs and I&O:
Vital Signs
Temp Pulse Resp BP Pulse Ox
98.2 F 78 16 130/97 98
07/10/23 07:55 07/10/23 07:55 07/10/23 07:55 07/10/23 07:55 07/10/23 07:55
I&O
07/09/23 07/10/23 07/11/23
06:59 06:59 06:59
Intake Total 2380 / 2380 2820 / 2820
Balance 2380 / 2380 2820 / 2820
Physical Exam
Physical Exam
GI: Soft, Non Distended and Non Tender
--- NOTE | 2023-07-10 14:02 | CM ---
Patient seen bedside, chart reviewed. Per Gastroenterology note, possible EGD with botox injection tomorrow. CM will continue to be available, will follow for discharge planning needs.
Plan; home no needs.
[2023-07-10 15:55] VITALS: BP 145/93
[2023-07-10 23:45] VITALS: BP 140/99
[2023-07-11] VITALS (8 sets, daily range): BP systolic 95–137; BP diastolic 78–95
[2023-07-11] MEDS: NSS 1000 IV ×2 (03:03→20:41)
--- NOTE | 2023-07-11 09:40 | W.PN.HOSP.TC ---
Today's Communication/Plan
-
EGD and Botox injection today
Overall feeding status per GI postprocedure
Will continue IV fluids for now
Assessment / Plan
Assessment / Plan
57-year-old male with past medical history of possible Gilbert's disease presenting with worsening inability to tolerate solids or liquids. Few weeks ago he started throwing up whenever he was eating or drinking anything and this got worse over the
past 3 days. Denies any pain with swallowing. Denies any coffee-ground emesis or blood in the vomit. He has lost 5 to 10 pounds in the past several weeks. He denies any chest or abdominal pain. Denies any diarrhea or constipation has been
having regular bowel movements. Denies any blood in the stool or black stool. He has been burping for several years and saw his family care physician years ago who prescribed Pepcid without much improvement. He was diagnosed with Gilbert's
disease 25 years ago on routine lab work showing elevated bilirubin. He had a colonoscopy several years ago for diarrhea which was unremarkable. Never had EGD.
He denies any smoking, alcohol or drug use. His father had colitis of unspecified type. No family history of cancers.
CT of the chest/pelvis with IV contrast
1. Abnormal concentric mural thickening of the distal esophagus/gastroesophageal junction. Above this level, diffuse abnormal esophageal dilation with large amount of ingested material within the distended esophagus. Differential considerations of
distal esophageal malignancy and achalasia, recommend further evaluation with endoscopy.
2. The distended esophagus exerts significant mass effect against right pulmonary artery, left atrium, and right atrium as above.
3. No findings suspicious for metastatic disease are identified.
4. Nonobstructive right nephrolithiasis.
5. Diverticulosis without diverticulitis.
# Dysphagia likely secondary to distal esophageal malignancy/achalasia
-CT chest abdomen pelvis shows abnormal concentric mural thickening of the distal esophagus/gastroesophageal junction with diffuse abnormal esophageal dilatation large amount of ingested material within the distended esophagus above this point
-Protonix 40 twice daily
-Clear liquids and awaiting GI input for advancement
-IV fluid can be discontinued
-GI consulted/as discussed with the patient and also patient's spouse been informed that the patient in process of EGD and due to the complexity and volume of food involved may require eventual intubation for completion of intervention and
disimpaction of food/risk of perforation also explain/underwent
EGD finding large amount of semiliquid food in the esophagus removed finding moderate esophagitis that was biopsied along with gastric fundic polyps that were biopsied/rule out eosinophilic esophagitis per GI if negative for pathology set up
outpatient esophageal manometry
-Attempted advancing diet unfortunately was unsuccessful due to return of nausea and vomiting and hiccups and burping./Will continue IV PPI and IV fluids have been reinitiated awaiting GI input
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
# History of possible Gilbert's disease
-Bilirubin of 5.1, no prior available
Full code
DVT prophylaxisis-SCDs
N.p.o.
Anticipated Discharge: Within 24 hours
Subjective/Interval History
-
Date of Service: July 11, 2023
Still with burping and reflux symptoms
Objective Data
-
Vital Signs:
Vital Signs
Temp Pulse Resp BP Pulse Ox
97.7 F 86 16 135/95 99
07/11/23 07:55 07/11/23 07:55 07/11/23 07:55 07/11/23 07:55 07/11/23 07:55
I&O
07/10/23 07/11/23 07/12/23
06:59 06:59 06:59
Intake Total 2820 / 2820 960 / 960
Balance 2820 / 2820 960 / 960
Review of Systems
-
Abdomen/GI: Reports Nausea and Other (Burping hiccups)
Physical Exam
-
General: Well Developed
HEENT: Normocephalic
Respiratory: Clear to Auscultation
Cardiac: Regular Rhythm
GI: Soft
Data Reviewed
-
Total Time Spent with Patient (in minutes): 45
Diagnostic Radiology: Report Reviewed by me (Esophagram results reviewed showing narrowing of the tip of the distal esophagus with severe esophagitis)
Labs: Labs Reviewed by me
--- NOTE | 2023-07-11 10:29 | W.PN.UPDATE ---
Update Note
Progress Note Update
Patient had period of emesis on attempts at EGD for Botox injection and probably aspirated chest x-ray pending was intubated and now extubated in PACU but with respiratory crackles high suspicion for aspiration pneumonitis will place on empiric
antibiotic coverage with Unasyn monitor respiratory status closely
[2023-07-11] MEDS: UNASYN IV ×3 (11:36→23:31)
[2023-07-11] MEDS: NSS (PRESERVATIVE FREE) 10 ML IV ×2 (11:36→20:38)
[2023-07-11] MEDS: PROTONIX IV 40 MG IV ×2 (11:36→20:37)
[2023-07-11] MEDS: BOTOX 100 UNITS INJ (11:41)
[2023-07-11] MEDS: NSS IV (13:41)
--- NOTE | 2023-07-11 14:56 | CM ---
Patient seen bedside with and daughter. Chart reviewed, patient intubated and extubated today. CM will continue to offer support, will follow for all discharge planning needs.
Plan; home no needs, pending further medical evaluation.
--- NOTE | 2023-07-11 20:13 | PTCARENOTE ---
Patient had EGD today with botox injection. Patient remains NPO. IVF maintained. Emotional support provided. Patient anxious about next steps and has questions concerning possible surgical procedure.
[2023-07-12] MEDS: UNASYN IV ×4 (05:07→22:57)
[2023-07-12 07:07] VITALS: BP 125/81
--- NOTE | 2023-07-12 08:40 | W.PN.GI.CBS2 ---
Today's Communication / Plan
-
Will start Diflucan for Lena esophagitis rest as above
Assessment / Plan
-
Pt is a 57yo with hx possible Gilbert's disease distant hx proctitis with short term enema treatment and colonoscopy years ago with onset dysphagia for some time. He had feeling of food sticking in lower esophagus for some of nausea/vomiting with
inability to eat with belching, hiccups and wt loss. CT chest/abd/pelvis completed with IV contrast with concern for mural thickening distal esophagus/GE junction with abnormal esophageal dilation and large amount of ingested material with
distended esophagus. No finding for mets, non obstructive nephrolithiasis, diverticulosis. no prior EGD or recent medical care
07/07 EGD [facility] - Food in the esophagus. Removal was successful.
- Moderately severe esophagitis with no bleeding.
Biopsied.
- Multiple gastric polyps. Biopsied.
- Normal examined duodenum.
bx pending
Impression:
-large food impaction with removal 07/07
-abnormal CT with concern for mural thickening distal esophagus with abnormal dilation and large amount ingested material
-CT findings and endoscopic findings are consistent with achalasia.
-status post EGD with Botox 07/10 but patient very afraid to try p.o. intake.
-Patient really unable to tolerate any p.o. intake for outpatient manometry or outpatient treatment. He has significant esophageal dilatation with high risk for aspiration with p.o. intake.
-Discussed with Dr. Rousseau will need to call [facility] to see if the patient can be transferred as inpatient for possible POEM versus Heller's myotomy for achalasia
- I discussed with patient and at length yesterday about all the possible options if patient is not accepted in transfer at [facility] our next best option would be to start TPN and discharge on TPN for outpatient follow-up at [facility]
-Esophagitis from reflux and also from significant chronic stasis of food. Continue PPI twice daily may not be able to tolerate p.o. Carafate.
-Also has fungal organisms noted on esophageal biopsies negative for EOE will start him on Diflucan
-elevated bili with concern for possible underlying Gilbert's disease
Subjective
Subjective
Date of Service: July 12, 2023
Patient has been n.p.o. since after the endoscopy and he says that his hiccups have finally resolved and he has not had any nausea vomiting or regurgitation and he also has not been spitting up until because he has been NPO.
Objective
Data Reviewed
Laboratory Data:
Laboratory Results
PT 15.1 Sec (11.4-14.6) H 07/08/23 08:01
INR 1.21 07/08/23 08:01
Total Bilirubin 5.4 mg/dl (0.2-1.3) H 07/08/23 07:34
AST 20 U/L (17-59) 07/08/23 07:34
ALT 16 U/L (0-50) 07/08/23 07:34
Alkaline Phosphatase 71 U/L (38-126) 07/08/23 07:34
Lipase 280 U/L (23-300) 07/07/23 11:34
Vital Signs and I&O:
Vital Signs
Temp Pulse Resp BP Pulse Ox
97.9 F 82 18 137/81 100
07/11/23 23:30 07/11/23 23:30 07/11/23 23:30 07/11/23 23:30 07/11/23 23:30
I&O
07/11/23 07/12/23 07/13/23
06:59 06:59 06:59
Intake Total 960 / 960 550 / 550
Balance 960 / 960 550 / 550
07/11/23 CXR
IMPRESSION:
No radiographic evidence of acute cardiopulmonary abnormality.
EGD PATH
FINAL DIAGNOSIS
A. Stomach, fundus, polyp, cold forcep biopsy:
Fundic gland polyp.
Negative for intestinal metaplasia and dysplasia.
Helicobacter pylori-like organisms are not identified on H&E and H. pylori
immunostain.*
B. Esophagus, lower, cold forcep biopsy:
Squamous epithelium with mild superficial intraepithelial neutrophils, compatible with
mild acute esophagitis.
C. Esophagus, middle, cold forcep biopsy:
Marked acute esophagitis and necroinflammatory debris, with abundant bacterial and
fungal pseudohyphae and yeast forms noted.
GMS fungal stain highlights the fungal organisms.
D. Esophagus, upper, cold forcep biopsy:
Squamous epithelium with no significant histopathologic change.
Physical Exam
Physical Exam
Cardiology: Normal Sinus Rhythm
Pulmonary: Clear
GI: Soft, Non Distended, Non Tender and Normal Bowel Sounds
[2023-07-12 08:47] LABS: Hematocrit 42.2 % (39.0-52.0); Hemoglobin 15.1 g/dL (13.0-18.0); Mean Corp Hgb Conc. 35.8 g/dL (33.0-37.0); Mean Corpuscular Hgb 31.8 pg (27.0-31.0); Mean Corpuscular Volume 88.8 fL (80.0-94.0); Platelet Count 200 10^3/uL (130-400); Red Blood Cell Count 4.75 10^6/uL (4.70-6.10); Red Cell Dist. Width 11.4 % (11.5-14.5); White Blood Cell Count 12.4 10^3/uL (4.8-10.8)
[2023-07-12 09:15] LABS: Blood Urea Nitrogen 17 mg/dl (9-20); Calcium 8.4 mg/dl (8.4-10.2); Carbon Dioxide 20 mmol/L (22-30); Chloride 102 mmol/L (98-107); Estimated Creatinine Clearance 83 ml/min; Glucose 76 mg/dl (70-99); Potassium 4.1 mmol/L (3.5-5.1); Sodium 131 mmol/L (135-145); eGFR > 60.00
[2023-07-12] MEDS: DIFLUCAN 200 MG 100 IV (09:17)
[2023-07-12] MEDS: NSS (PRESERVATIVE FREE) 10 ML IV ×2 (09:23→20:13)
[2023-07-12] MEDS: PROTONIX IV 40 MG IV ×2 (09:23→20:13)
--- NOTE | 2023-07-12 09:59 | W.PN.HOSP.TC ---
Today's Communication/Plan
-
Will continue IV fluids this time changed to lactated Ringer's
Continue to monitor electrolytes
Will call [place] transfer center today to see if we can manage transfer to [place] for more definitive management of his achalasia not available here
Continue on Diflucan IV
Right now do not see much signs of a aspiration event and will consider discontinuation of Zosyn in the next 24 hours
Assessment / Plan
Assessment / Plan
57-year-old male with past medical history of possible Gilbert's disease presenting with worsening inability to tolerate solids or liquids. Few weeks ago he started throwing up whenever he was eating or drinking anything and this got worse over the
past 3 days. Denies any pain with swallowing. Denies any coffee-ground emesis or blood in the vomit. He has lost 5 to 10 pounds in the past several weeks. He denies any chest or abdominal pain. Denies any diarrhea or constipation has been
having regular bowel movements. Denies any blood in the stool or black stool. He has been burping for several years and saw his family care physician years ago who prescribed Pepcid without much improvement. He was diagnosed with Gilbert's
disease 25 years ago on routine lab work showing elevated bilirubin. He had a colonoscopy several years ago for diarrhea which was unremarkable. Never had EGD.
He denies any smoking, alcohol or drug use. His father had colitis of unspecified type. No family history of cancers.
CT of the chest/pelvis with IV contrast
1. Abnormal concentric mural thickening of the distal esophagus/gastroesophageal junction. Above this level, diffuse abnormal esophageal dilation with large amount of ingested material within the distended esophagus. Differential considerations of
distal esophageal malignancy and achalasia, recommend further evaluation with endoscopy.
2. The distended esophagus exerts significant mass effect against right pulmonary artery, left atrium, and right atrium as above.
3. No findings suspicious for metastatic disease are identified.
4. Nonobstructive right nephrolithiasis.
5. Diverticulosis without diverticulitis.
# Dysphagia likely secondary to distal esophageal malignancy/achalasia
-CT chest abdomen pelvis shows abnormal concentric mural thickening of the distal esophagus/gastroesophageal junction with diffuse abnormal esophageal dilatation large amount of ingested material within the distended esophagus above this point
-Protonix 40 twice daily
-Clear liquids and awaiting GI input for advancement
-IV fluid can be discontinued
-GI consulted/as discussed with the patient and also patient's spouse been informed that the patient in process of EGD and due to the complexity and volume of food involved may require eventual intubation for completion of intervention and
disimpaction of food/risk of perforation also explain/underwent
EGD finding large amount of semiliquid food in the esophagus removed finding moderate esophagitis that was biopsied along with gastric fundic polyps that were biopsied/rule out eosinophilic esophagitis per GI if negative for pathology set up
outpatient esophageal manometry
-Attempted advancing diet unfortunately was unsuccessful due to return of nausea and vomiting and hiccups and burping./Will continue IV PPI and IV fluids have been reinitiated awaiting GI input
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
-Attempted to repeat EGD this time with Botox injections resulted in questionable aspiration event after emesis/will remain n.p.o./he remains at high risk for aspiration event and refuses to take anything orally at this point/discussions with GI and
detailed see if a tertiary care center can offer either POEM or Heller's myotomy/we will try and call [facility] today to see if we can make that happen if not excepted in transfer will need TPN for eventual outpatient scheduling will continue on PPI
Fungal organisms seen on esophageal biopsies but negative for eosinophilic esophagitis
-Placed on IV Diflucan
-Monitor for QTc prolongation and check EKG in a.m.
# History of possible Gilbert's disease
-Bilirubin of 5.1, no prior available
Full code
DVT prophylaxisis-SCDs
N.p.o.
Anticipated Discharge: 24 - 48 hours
Subjective/Interval History
-
Date of Service: July 12, 2023
Has remained n.p.o. overnight had discussions with the GI in regards to need for transfer to tertiary center to address his ongoing achalasia that is been unsuccessfully treated here most recently with Botox may have aspirated during event yesterday
no outward dyspnea or significant congestion noted this morning and states he feels significantly better since he has not been allowed to eat nothing is been retained causing discomfort.
Objective Data
-
Labs:
Laboratory Results
07/12/23
05:53
WBC 12.4 H
Hgb 15.1
Hct 42.2
Plt Count 200 D
Sodium 131 L
Potassium 4.1
Chloride 102
Carbon Dioxide 20 L
BUN 17
Creatinine 0.8
Glucose 76
Calcium 8.4
Vital Signs:
Vital Signs
Temp Pulse Resp BP Pulse Ox
97.6 F 62 16 125/81 98
07/12/23 07:07 07/12/23 07:07 07/12/23 07:07 07/12/23 07:07 07/12/23 07:07
I&O
07/11/23 07/12/23 07/13/23
06:59 06:59 06:59
Intake Total 960 / 960 550 / 550
Balance 960 / 960 550 / 550
Review of Systems
-
History Source: Patient
Constitutional: Reports No Symptoms
EENT: Reports No Symptoms Reported
Respiratory: Reports No Symptoms
Genitourinary: Reports No Symptoms
Musculoskeletal: Reports No Symptoms
Physical Exam
-
General: Well Developed
HEENT: Normocephalic
Respiratory: Clear to Auscultation
Cardiac: Regular Rhythm
GI: Soft, Nontender and Nondistended
Data Reviewed
-
Total Time Spent with Patient (in minutes): 45
CT Scan: Report Reviewed by me
Labs: Labs Reviewed by me
[2023-07-12] MEDS: NSS 1000 IV (10:09)
[2023-07-12] MEDS: LR 1000 IV ×2 (10:22→20:15)
--- NOTE | 2023-07-12 13:42 | W.PN.UPDATE ---
Update Note
Progress Note Update
I was able to contact the through the [facility] the GI hospitalist/GI fellow on-call and gave a complete history of this patient's presentation and they agreed to accept the patient to their GI hospitalist service for further workup
including but not limited to consideration for POEM procedure. They requested all imaging and reports of EGD to accompany the patient. He will be transferred to the medical surgical unit at [facility] under the GI service. Of
Dr. Manuel
--- NOTE | 2023-07-12 14:02 | PTCARENOTE ---
Patient started on Flagyl today in addition to Unasyn. Remains NPO. Abdomen slightly tender to palpation. Patient aware that the physician team is working to coordinate a bed at [place]. Hand-off given to [place] transport team.
[2023-07-12 15:25] VITALS: BP 142/90
[2023-07-12 22:37] VITALS: BP 158/95
--- NOTE | 2023-07-13 08:11 | CM ---
Pt transferred to [place] 22:00 after CM left.
--- NOTE | 2023-07-13 12:07 | W.DCSUMMARY ---
Discharge Summary
Discharge Data
Date of Admission: 07/07/23
Date of Discharge: 07/12/23
-
Pending Results: No
Hospital Course
57yo with hx possible Gilbert's disease distant hx proctitis with short term enema treatment and colonoscopy years ago with onset dysphagia for some time. He had feeling of food sticking in lower esophagus for some of nausea/vomiting with
inability to eat with belching, hiccups and wt loss. CT chest/abd/pelvis completed with IV contrast with concern for mural thickening distal esophagus/GE junction with abnormal esophageal dilation and large amount of ingested material with
distended esophagus. No finding for mets, non obstructive nephrolithiasis, diverticulosis. no prior EGD or recent medical care
He was admitted to the hospital medicine service with GI consultation
-High suspicion for achalasia based on initial impressions from CT and EGD
Underwent EGD on 07 July noting large amount of food impaction that was removed some which was apparently quite old with moderately severe esophagitis with no bleeding areas were biopsied along with multiple gastric polyps biopsied.
Subsequent attempts at clear liquids prompted further burping retching and vomiting prompting a repeat EGD to attempt Botox injections which were not successful in improving his status and now the patient is very hesitant to take anything orally he
did have an aspiration event during the second EGD while he was intubated and he was on a cautionary basis placed on empiric antibiotic coverage with Zosyn however subsequent chest x-ray showed no inflammatory infiltrate.
Subsequent biopsy results showed no evidence of eosinophilic pelvic esophagitis however did show some spots of fungal organisms and he was placed on Diflucan.
On further consultation with the GI service and family members it was felt that the patient may benefit from a tertiary care center evaluation for possible POEM or Heller myotomy/I spoke to the [place] [facility] and the GI hospitalist
on-call Dr Cortes who kindly accepted the patient for transfer on the date of November 10 and the patient was transferred in stable condition continued on IV fluids kept n.p.o. and has been continued on PPI infusion.
Discharge Plan
-
Patient Disposition: Home (Routine Discharge)
Discharge Diagnosis/Procedures: Food impaction
Possible motility disorder of esophagus
Esophagitis
Diet: Chop all food
Additional Diets: Mechanical soft
Activity: As tolerated
Driving Restrictions: As prior to admission
Referrals:
Bubba Crawford MD [Family Provider] -
Fracisco Kingston MD [Active] - (call office to arrange 3-4 week follow up)
Prescriptions:
New
pantoprazole [Protonix] 40 mg tablet,delayed release (DR/EC)
40 mg PO BID Qty: 60 0RF
Discharge Orders:
Discharge Patient (As Directed); Ordered 07/12/23
Ordered By: Fernanda Skinner (Linda)
Discharge Date and Time
Discharge Date/Time: 07/13/23 01:00
Print Language: OCCITAN
== END 2023-07-13 01:00 | disposition short-term general hospital (02) | DRG 392 ==
LOC: 4 EAST ACU 18:18
PROVIDERS: Emergency Medicine; Internal Medicine Gastroenterology; ADMITTING PHYSICIAN Hospitalist; ATTENDING PHYSICIAN Internal Medicine; EMERGENCY PHYSICIAN Emergency Medicine; FAMILY PHYSICIAN Family Medicine; OTHER PHYSICIAN Specialist
PROC: 0DC58ZZ Extirpation of Matter from Esophagus, Via Natural or Artificial Opening Endoscopic (ICD-10-PCS; 2023-07-08)
PROC: 0DB68ZX Excision of Stomach, Via Natural or Artificial Opening Endoscopic, Diagnostic (ICD-10-PCS; 2023-07-08)
PROC: 3E0G8GC Introduction of Other Therapeutic Substance into Upper GI, Via Natural or Artificial Opening Endoscopic (ICD-10-PCS; 2023-07-11)
DX: K22.0 Achalasia of cardia (principal); B37.81 Candidal esophagitis; Q39.9 Congenital malformation of esophagus, unspecified; Z68.1 Body mass index [BMI] 19.9 or less, adult; E80.4 Gilbert syndrome; R06.6 Hiccough; R63.4 Abnormal weight loss; K22.2 Esophageal obstruction; K22.89 Other specified disease of esophagus; T18.128A Food in esophagus causing other injury, initial encounter; W44.F3XA Food entering into or through a natural orifice, initial encounter; F41.9 Anxiety disorder, unspecified; N20.0 Calculus of kidney; K57.30 Diverticulosis of large intestine without perforation or abscess without bleeding; K21.00 Gastro-esophageal reflux disease with esophagitis, without bleeding; K31.7 Polyp of stomach and duodenum; R13.14 Dysphagia, pharyngoesophageal phase
CPT/HCPCS: 88305; 88312; 71045; 71260; 74177; 74221; 80048; 80053; 82248; 83690; 85025; 85027; 85610; 88342; 93005; 96361; 96374; 96375; 99285; J0585; J7030; Q9967